=== PATIENT | female | born 1995 | race Caucasian/White ===

== ENCOUNTER 2017-06-05 05:51 | Emergency (ER) | payer MEDICAID ==
[2017-06-05] MEDS ORDERED: METOCLOPRAMIDE 10 MG/2 ML VIAL IVP STA (06:26)
[2017-06-05] MEDS ORDERED: SODIUM CHLORIDE 0.9% 1,000 ML IV ONE (06:26)
--- NOTE | 2017-06-05 06:30 | ED Physician Documentation ---
History of Present Illness - Stated complaint Stated Complaint: VOMITING - Chief complaint Chief Complaint: Abd Pain - Additonal information Additional information: 21-year-old female with history of anxiety presents to the emergency department with vomiting beginning yesterday afternoon. No diarrhea. Patient reports that she is unable to tolerate any p.o. and has since developed a migraine because of this. She has had no fevers and no abdominal pain. Review of Systems Constitutional: denies: Fever Eyes: denies: Loss of vision Nose: denies: Congestion Cardiac: denies: Chest pain / pressure Respiratory: denies: Dyspnea GI: reports: Nausea, Vomiting. denies: Abdominal Pain : denies: Dysuria, Frequency Neurologic: reports: Headache (typical of her migraines) PD PAST MEDICAL HISTORY - Past Medical History Past Medical History: Yes Neuro: Headache/migraine : Incontinence Psych: Anxiety - Past Surgical History Past Surgical History: Yes HEENT: Tonsil/Adenoidectomy - Present Medications Home Medications: Ambulatory Orders Medication Instructions Recorded Confirmed Citalopram [CeleXA] 10 mg PO ONCE 04/17/17 06/05/17 Ondansetron Odt [Zofran] 4 mg TL Q6H PRN #10 tablet 06/05/17 - Allergies Allergies/Adverse Reactions: Allergies Allergy/AdvReac Type Severity Reaction Status Date / Time No Known Drug Allergies Allergy Verified 06/05/17 06:05 - Social History Does the pt smoke?: No Smoking Status: Never smoker Does the pt drink ETOH?: Yes Does the pt have substance abuse?: No - Immunizations Immunizations are current?: Yes - POLST Patient has POLST: No PD ED PE NORMAL - Vitals Vital signs reviewed: Yes - General General: Alert and 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, No acute distress - HEENT HEENT: Other (mildly dry mucus membranes) - Neck Neck: Supple, no meningeal sign - Cardiac Cardiac: RRR, No murmur - Respiratory Respiratory: Clear bilaterally - Abdomen Abdomen: Normal bowel sounds, Soft, Non tender, Non distended - Derm Derm: Warm and dry - Extremities Extremities: No deformity - Neuro 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 and 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, Normal speech - Psych Psych: Other (blunted affect) Results - Vitals Vitals: Vital Signs - 24 hr 06/05/17 06:02 Temperature 37.0 C Heart Rate 102 H Respiratory 18 Rate Blood Pressure 140/82 H O2 Saturation 93 Oxygen O2 Source Room air - Labs Labs: Laboratory Tests 06/05/17 06/05/17 06:15 07:10 Serum HCG, Qual NEGATIVE Ur Specific [place] >=1.030 H Urine HCG, Qual NEGATIVE PD MEDICAL DECISION MAKING - ED course ED course: 21-year-old female presents to the emergency department with vomiting and headache. Vomiting preceded the headache. Benign abdominal exam, well- appearing, mild tachycardia and dry mucous membranes consistent with mild dehydration. I am not concerned for appendicitis, pancreatitis, cholecystitis, biliary colic given her lack of abdominal pain and tenderness.I do not suspect bowel obstruction. I do not suspect new or serious cause of patient's headache given and is typical of her previous migraines. She is afebrile with a supple neck and well- appearing. Patient was treated with IV antiemetics and fluids and felt improved. Departure - Departure Disposition: 01 Home, Self Care Clinical Impression: Vomiting, Headache Condition: Good Instructions: ED Abdominal Pain Unkn Cause, ED Headache Migraine Prescriptions: Ondansetron Odt [Zofran] 4 mg TL Q6H PRN #10 tablet PRN Reason: Nausea / Vomiting Comments: Make an appointment to follow-up with your regular doctor after your visit to the emergency department. Continue to take her usual migraine medications. You were given a prescription for Zofran to help with your vomiting. Return to the emergency department if you develop abdominal pain especially pain in 1 spot. Also return if you are unable to keep down any food or drink.
[2017-06-05] MEDS ORDERED: METOCLOPRAMIDE 10 MG/2 ML VIAL ONE (06:34)
[2017-06-05 07:21] LABS: HCG UR QUAL NEGATIVE
[2017-06-05] MEDS ORDERED: KETOROLAC 30 MG/ML VIAL IVP STA (07:25)
[2017-06-05] MEDS ORDERED: diphenhydrAMINE INJ 50 MG/ML VIAL IVP STA (07:25)
[2017-06-05] MEDS ORDERED: KETOROLAC 30 MG/ML VIAL ONE (08:00)
[2017-06-05] MEDS ORDERED: diphenhydrAMINE INJ 50 MG/ML VIAL ONE (08:00)
[2017-06-05 08:17] VITALS: BP 123/66
== END 2017-06-05 08:14 | disposition home or self-care (01) ==
LOC: ED 05:51
DX: R11.2 Nausea with vomiting, unspecified (principal); R51 Headache
CPT/HCPCS: 81025; 84703; 96361; 96374; 96375; 99283; 99284

== ENCOUNTER 2018-03-20 14:44 | Emergency (ER) | payer MEDICAID ==
[2018-03-20 15:13] LABS: BILIRUBIN,URINE NEGATIVE (NEGATIVE); GLUCOSE, URINE (UA) NEGATIVE (NEGATIVE); KETONES,URINE (UA) NEGATIVE (NEGATIVE); LEUKOCYTE ESTERASE, URINE SMALL (NEGATIVE); NITRITE,URINE POSITIVE (NEGATIVE); OCCULT BLOOD,URINE MODERATE (NEGATIVE); PH,URINE 5.5 PH (5.0-7.5); PROTEIN,URINE 30 mg/dL (NEGATIVE); UROBILINOGEN,URINE 0.2 (NORMAL) E.U./dL (NORMAL)
[2018-03-20 15:18] LABS: CLARITY,URINE HAZY (CLEAR); HCG UR QUAL NEGATIVE
--- NOTE | 2018-03-20 15:27 | ED Physician Documentation ---
PD HPI FEMALE - Stated complaint Stated Complaint: FM - Chief complaint Chief Complaint: UTI - History obtained from History obtained from: Patient - History of Present Illness Timing - onset: How many days ago (3) Timing - duration: Days (3) Timing - details: Gradual onset, Still present Associated symptoms: Vaginal discharge, Dysuria, Urinary frequency, Other (itching) Similar symptoms before: Diagnosis (UTI) Recently seen: Not recently seen - Additional information Additional information: 22 y/o female with a 3 day history of urinary symptoms also has a white discharge and vaginal itching. Review of Systems Constitutional: denies: Fever Nose: denies: Congestion Respiratory: denies: Cough GI: denies: Abdominal Pain, Nausea, Vomiting, Constipation, Diarrhea : reports: Dysuria, Frequency Skin: denies: Rash Musculoskeletal: denies: Neck pain, Back pain, Extremity pain PD PAST MEDICAL HISTORY - Past Medical History Past Medical History: Yes : Incontinence Psych: Anxiety - Past Surgical History Past Surgical History: Yes HEENT: Tonsil/Adenoidectomy - Present Medications Home Medications: Ambulatory Orders Medication Instructions Recorded Confirmed Ciprofloxacin HCl [Cipro] 500 mg PO BID #10 tablet 03/20/18 - Allergies Allergies/Adverse Reactions: Allergies Allergy/AdvReac Type Severity Reaction Status Date / Time No Known Drug Allergies Allergy Verified 03/20/18 14:55 - Social History Does the pt smoke?: No Smoking Status: Never smoker Does the pt drink ETOH?: Yes Does the pt have substance abuse?: No - Immunizations Immunizations are current?: Yes - POLST Patient has POLST: No PD ED PE NORMAL - Vitals Vital signs reviewed: Yes (hypertensive) - General General: Alert and 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, No acute distress, Well developed/nourished - HEENT HEENT: Atraumatic, PERRL - Respiratory Respiratory: No respiratory distress - Back Back: No CVA TTP, No spinal TTP - Derm Derm: Normal color, Warm and dry, No rash - Extremities Extremities: No deformity, No edema - Neuro 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 and 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, 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, No motor deficit, No sensory deficit, Normal speech Eye Opening: Spontaneous Motor: Obeys Commands Verbal: Oriented GCS Score: 15 - Psych Psych: Normal mood, Normal affect Results - Vitals Vitals: Vital Signs - 24 hr 03/20/18 14:52 Temperature 36.8 C Heart Rate 93 Respiratory 18 Rate Blood Pressure 136/92 H O2 Saturation 97 Oxygen O2 Source Room air - Labs Labs: Laboratory Tests 03/20/18 15:03 Urine Color YELLOW Urine Clarity HAZY Urine pH 5.5 Ur Specific [place] >=1.030 H Urine Protein 30 H Urine Glucose (UA) NEGATIVE Urine Ketones NEGATIVE Urine Occult Blood MODERATE H Urine Nitrite POSITIVE H Urine Bilirubin NEGATIVE Urine Urobilinogen 0.2 (NORMAL) Ur Leukocyte Esterase SMALL H Urine RBC 11-25 H Urine WBC 11-25 H Ur Squamous Epith Cells FEW Squamous Urine Bacteria Moderate H Ur Microscopic Review INDICATED Urine Culture Comments INDICATED Urine HCG, Qual NEGATIVE PD MEDICAL DECISION MAKING - ED course Complexity details: reviewed results, re-evaluated patient, considered differential, d/w patient ED course: 22 y/o female with a UTI and yeast vaginitis knows that septra does not usually work and she has had both cipro and macrobid previously. - Sepsis Event Vital Signs: Vital Signs - 24 hr 03/20/18 14:52 Temperature 36.8 C Heart Rate 93 Respiratory 18 Rate Blood Pressure 136/92 H O2 Saturation 97 Oxygen O2 Source Room air Departure - Departure Disposition: 01 Home, Self Care Clinical Impression: UTI (urinary tract infection) Qualifiers: Urinary tract infection type: acute cystitis Hematuria presence: without hematuria Qualified Code(s): N30.00 - Acute cystitis without hematuria Condition: Stable Instructions: ED UTI Cystitis Female Follow-Up: Your, doctor [Other] Prescriptions: Ciprofloxacin HCl [Cipro] 500 mg PO BID #10 tablet
[2018-03-20 15:34] LABS: BACTERIA,URINE Moderate /HPF (None Seen); SQUAMOUS EPITHELIAL CELL,UR FEW Squamous (<= Few)
[2018-03-20] MEDS ORDERED: FLUCONAZOLE 100 MG TABLET PO STA (15:49)
[2018-03-20] MEDS ORDERED: CIPROFLOXACIN 250 MG TABLET PO STA (15:51)
[2018-03-20 15:57] VITALS: BP 130/76
== END 2018-03-20 16:00 | disposition home or self-care (01) ==
LOC: ED 14:44
DX: N30.00 Acute cystitis without hematuria (principal); N76.0 Acute vaginitis
CPT/HCPCS: 81001; 81025; 87086; 87181; 99283; A9270; 81003

== ENCOUNTER 2018-04-10 19:24 | Emergency (ER) | payer MEDICAID ==
--- NOTE | 2018-04-10 19:47 | ED Physician Documentation ---
PD HPI FEMALE - Stated complaint Stated Complaint: FEM - Chief complaint Chief Complaint: UTI - History obtained from History obtained from: Patient - History of Present Illness Timing - onset: Yesterday (Urinary frequency and dysuria which was slight yesterday now much worse today without flank pain, fevers, or nausea. She was seen yesterday for routine woman exam without a pelvic and she said she had a urinalysis done that was negative.) Review of Systems Constitutional: denies: Fever, Chills Respiratory: denies: Dyspnea, Cough GI: denies: Abdominal Pain, Nausea, Vomiting, Diarrhea PD PAST MEDICAL HISTORY - Past Medical History : Incontinence Psych: Anxiety - Past Surgical History Past Surgical History: Yes HEENT: Tonsil/Adenoidectomy - Present Medications Home Medications: Ambulatory Orders Medication Instructions Recorded Confirmed Nitrofurantoin Monohyd/M-Cryst 100 mg PO BID #10 capsule 04/10/18 [Macrobid 100 mg Capsule] Phenazopyridine HCl [Pyridium] 200 mg PO TID PRN #6 tablet 04/10/18 - Allergies Allergies/Adverse Reactions: Allergies Allergy/AdvReac Type Severity Reaction Status Date / Time No Known Drug Allergies Allergy Verified 04/10/18 19:31 - Social History Does the pt smoke?: No Smoking Status: Never smoker Does the pt drink ETOH?: Yes Does the pt have substance abuse?: No - Immunizations Immunizations are current?: Yes - POLST Patient has POLST: No PD ED PE NORMAL - Vitals Vital signs reviewed: Yes - General General: Alert and 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, No acute distress - Abdomen Abdomen: Soft, Non tender - Back Back: No CVA TTP, No spinal TTP - Neuro 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 and 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, Normal speech Results - Vitals Vitals: Vital Signs - 24 hr 04/10/18 19:26 Temperature 36.4 C L Heart Rate 85 Respiratory 17 Rate Blood Pressure 119/81 H O2 Saturation 100 Oxygen O2 Source Room air - Labs Labs: Laboratory Tests 04/10/18 19:36 Urine Color YELLOW Urine Clarity HAZY Urine pH 6.0 Ur Specific [place] >=1.030 H Urine Protein NEGATIVE Urine Glucose (UA) NEGATIVE Urine Ketones TRACE Urine Occult Blood SMALL H Urine Nitrite NEGATIVE Urine Bilirubin NEGATIVE Urine Urobilinogen 0.2 (NORMAL) Ur Leukocyte Esterase SMALL H Urine RBC TNTC H Urine WBC >25 H Ur Squamous Epith Cells FEW Squamous Urine Bacteria Moderate H Urine Culture Comments INDICATED Urine HCG, Qual NEGATIVE Departure - Departure Disposition: 01 Home, Self Care Clinical Impression: Cystitis Condition: Good Record reviewed to determine appropriate education?: Yes Instructions: ED UTI Cystitis Female Prescriptions: Nitrofurantoin Monohyd/M-Cryst [Macrobid 100 mg Capsule] 100 mg PO BID #10 capsule Phenazopyridine HCl [Pyridium] 200 mg PO TID PRN #6 tablet PRN Reason: dysuria Comments: We will culture your urine, the results should be done in 48-72 hours. If an antibiotic change is necessary we will call you. Return if worse in the meantime, especially if you develop increasing flank pain, fevers, or cannot keep down the medication.
[2018-04-10 19:55] LABS: BILIRUBIN,URINE NEGATIVE (NEGATIVE); GLUCOSE, URINE (UA) NEGATIVE (NEGATIVE); KETONES,URINE (UA) TRACE mg/dL (NEGATIVE); LEUKOCYTE ESTERASE, URINE SMALL (NEGATIVE); NITRITE,URINE NEGATIVE (NEGATIVE); OCCULT BLOOD,URINE SMALL (NEGATIVE); PROTEIN,URINE NEGATIVE (NEGATIVE); UROBILINOGEN,URINE 0.2 (NORMAL) E.U./dL (NORMAL)
[2018-04-10 19:58] LABS: CLARITY,URINE HAZY (CLEAR); HCG UR QUAL NEGATIVE
[2018-04-10 20:02] LABS: BACTERIA,URINE Moderate /HPF (None Seen); RBC,URINE TNTC /HPF (0-5); SQUAMOUS EPITHELIAL CELL,UR FEW Squamous (<= Few)
[2018-04-10] MEDS ORDERED: SULFAMETH/TRIMETH DS 800/160 MG TABLET PO STA (20:08)
[2018-04-10] MEDS ORDERED: PHENAZOPYRIDINE 100 MG TABLET PO STA (20:08)
[2018-04-10] MEDS ORDERED: NITROFURANTOIN MACRO 100 MG CAPSULE PO STA (20:15)
[2018-04-10 20:30] VITALS: BP 122/58
== END 2018-04-10 20:29 | disposition home or self-care (01) ==
LOC: ED 19:24
DX: N30.90 Cystitis, unspecified without hematuria (principal)
CPT/HCPCS: 81001; 81025; 87086; 99283; A9270

== ENCOUNTER 2018-12-16 15:26 | Outpatient (CLI) | payer MEDICAID ==
[2018-12-16 16:10] LABS: ALBUMIN 4.4 g/dL (3.2-5.5); ALBUMIN/GLOBULIN RATIO 1.3 (1.0-2.2); ALKALINE PHOSPHATASE 57 IU/L (42-121); ALT ALANINE AMINOTRANSFERASE 36 IU/L (10-60); AST ASPARTATE AMINOTRANSFERASE 24 IU/L (10-42); BILIRUBIN,TOTAL 0.6 mg/dL (0.2-1.0); BUN - BLOOD UREA NITROGEN 17 mg/dL (6-20); CALCIUM 9.4 mg/dL (8.5-10.3); CARBON DIOXIDE - CO2 20 mmol/L (21-32); CHLORIDE 107 mmol/L (101-111); CHOL/HDL RATIO 4.3 (<4.4); CHOLESTEROL 186 mg/dL; CREATININE 0.9 mg/dL (0.4-1.0); GFR - MDRD 76 (>89); GLUCOSE 97 mg/dL (70-100); HDL CHOLESTEROL 43 mg/dL; LDL CHOLESTEROL,CALCULATED 116 mg/dL; LDL/HDL RATIO 2.7 (<4.4); SODIUM 137 mmol/L (135-145); TOTAL PROTEIN 7.9 g/dL (6.7-8.2); VLDL CHOLESTEROL 27 mg/dL
[2018-12-16 16:58] LABS: HB2 TOTAL 14.5 g/dL; HEMOGLOBIN A1C 0.53 g/dL; HEMOGLOBIN A1C % 5.5 % (4.6-6.2)
[2018-12-16 17:11] LABS: THYROID STIMULATING HORMONE 2.65 uIU/mL (0.34-5.60)
[2018-12-16 17:13] LABS: FREE T4 (FREE THYROXINE) 0.78 ng/dL (0.58-1.64)
[2018-12-16 17:16] LABS: PROLACTIN 10.75 ng/mL
[2018-12-16 17:38] LABS: FOLLICLE STIMULATING HORMONE 6.4 mIU/mL
[2018-12-17 07:05] LABS: ESTRADIOL 103 pg/mL
== END 2018-12-16 16:00 | disposition home or self-care (01) ==
LOC: LAB 15:26
PROVIDERS: ATTEND Obstetrics & Gynecology
DX: E28.2 Polycystic ovarian syndrome (principal); R10.2 Pelvic and perineal pain; N39.45 Continuous leakage
CPT/HCPCS: 80053; 80061; 81599; 82626; 82670; 83001; 83036; 83721; 84146; 84439; 84443

== ENCOUNTER 2018-12-16 17:45 | Outpatient (CLI) | payer MEDICAID ==
[2018-12-16 21:36] LABS: CANDIDA GROUP DNA POSITIVE (NEGATIVE); CANDIDA KRUSEI DNA NEGATIVE (NEGATIVE); TRICHOMONAS VAGINALIS DNA NEGATIVE (NEGATIVE)
== END 2018-12-16 18:15 | disposition home or self-care (01) ==
LOC: LAB.R 17:45
PROVIDERS: ATTEND Obstetrics & Gynecology
DX: E28.2 Polycystic ovarian syndrome (principal); R10.2 Pelvic and perineal pain; N39.45 Continuous leakage
CPT/HCPCS: 87086; 87661; 87801

== ENCOUNTER 2018-12-30 08:57 | Outpatient (CLI) | payer MEDICAID ==
--- NOTE | 2018-12-30 16:17 | Ultrasound Report ---
Reason: PELVIC PAIN, AMENORRHEA, URINARY INCONTINENCE LEAK Procedure Date: 12/30/2018 Accession Number: [id number] / [id number] Procedure: US - Pelvic w/Transvaginal CPT Code: FULL RESULT: EXAM: PELVIC ULTRASOUND EXAM DATE: 12/30/2018 09:59 AM. CLINICAL HISTORY: PELVIC PAIN, AMENORRHEA, URINARY INCONTINENCE LEAK. COMPARISON: None. TECHNIQUE: Realtime transabdominal pelvic scan performed to identify the uterus and adnexa and as an overview of other pelvic structures, followed by transvaginal scan to provide greater detail of the uterus and adnexa, with static image documentation. FINDINGS: Uterus: 8.8 x 3.2 x 4.2 cm, volume 64 cc. Anteverted position. Normal overall size and echotexture. Masses: None. Endometrium: 7 mm. Normal. Cervix: Unremarkable. Right Ovary: 4.1 x 2.6 x 3.1 cm, volume 18 cc. Normal blood flow. Numerous small peripheral follicles are present with ovarian enlargement. Left Ovary: 3.6 x 2.5 x 3.2 cm, volume 16 cc. Normal blood flow. Numerous small peripheral follicles are present with ovarian enlargement. Free Fluid: None. Other: None. IMPRESSION: 1. Enlarged ovaries containing numerous small peripheral follicles in a pattern consistent with polycystic ovarian syndrome in the correct clinical setting. 2. No mass lesions or free fluid. RADIA
== END 2018-12-30 08:58 | disposition home or self-care (01) ==
LOC: DI 08:57
PROVIDERS: ATTEND Obstetrics & Gynecology
DX: N83.8 Other noninflammatory disorders of ovary, fallopian tube and broad ligament (principal); R10.2 Pelvic and perineal pain; N91.1 Secondary amenorrhea; N39.45 Continuous leakage
CPT/HCPCS: 76830; 76856

== ENCOUNTER 2019-02-26 21:48 | Emergency (ER) | payer MEDICAID ==
--- NOTE | 2019-02-26 21:59 | ED Physician Documentation ---
PD HPI FEMALE - Stated complaint Stated Complaint: POSS UTI/ABD PX - Chief complaint Chief Complaint: Abd Pain - History obtained from History obtained from: Patient - History of Present Illness Timing - onset: Enter time (10:00), Today Timing - details: Gradual onset, Waxing and waning Associated symptoms: Pelvic pain (left pelvis), Dysuria, Urinary frequency. No: Fever Contributing factors: IUD. No: Recently seen: Not recently seen Review of Systems Constitutional: denies: Fever, Chills, Sweats GI: reports: Other (suprapubic and left pelvic discomfort). denies: Abdominal Pain, Nausea, Vomiting : reports: Dysuria, Frequency PD PAST MEDICAL HISTORY - Past Medical History Past Medical History: Yes : Incontinence Psych: Anxiety - Past Surgical History Past Surgical History: Yes HEENT: Tonsil/Adenoidectomy - Present Medications Home Medications: Ambulatory Orders Medication Instructions Recorded Confirmed Fluticasone [Flonase] 1 sprays JOSE E DAILY 02/26/19 02/26/19 Levonorgestrel 20 Mcg/24H [Mirena] 1 each IY 02/26/19 Nitrofurantoin Monohyd/M-Cryst 100 mg PO BID #10 capsule 02/26/19 [Macrobid 100 mg Capsule] Spironolactone 50 mg PO 02/26/19 - Allergies Allergies/Adverse Reactions: Allergies Allergy/AdvReac Type Severity Reaction Status Date / Time No Known Drug Allergies Allergy Verified 02/26/19 21:54 - Social History Does the pt smoke?: No Smoking Status: Never smoker Does the pt drink ETOH?: Yes Does the pt have substance abuse?: No - Immunizations Immunizations are current?: Yes - POLST Patient has POLST: No PD ED PE NORMAL - Vitals Vital signs reviewed: Yes - General General: Alert and 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, No acute distress, Well developed/nourished - Abdomen Abdomen: Soft, Non tender - Back Back: No CVA TTP - Derm Derm: Normal color, Warm and dry, No rash Results - Vitals Vitals: Vital Signs - 24 hr 02/26/19 02/26/19 21:50 23:53 Temperature 36.4 C L 36.5 C Heart Rate 81 74 Respiratory 16 18 Rate Blood Pressure 152/108 H 140/80 H O2 Saturation 99 98 Oxygen O2 Source Room air - Labs Labs: Laboratory Tests 02/26/19 22:03 Urine Color ORANGE Urine Clarity HAZY Urine pH 6.0 Ur Specific [place] 1.025 Urine Protein Urine Glucose (UA) NEGATIVE Urine Ketones NEGATIVE Urine Occult Blood Urine Nitrite Urine Bilirubin NEGATIVE Urine Urobilinogen Ur Leukocyte Esterase Urine RBC 6-10 H Urine WBC 6-10 H Ur Squamous Epith Cells RARE Squamous Urine Bacteria Few Ur Microscopic Review INDICATED Urine Culture Comments INDICATED Urine HCG, Qual NEGATIVE PD MEDICAL DECISION MAKING - ED course Complexity details: reviewed results, re-evaluated patient, considered differential, d/w patient Departure - Departure Disposition: Home, Self Care Clinical Impression: UTI (urinary tract infection) Qualifiers: Urinary tract infection type: acute cystitis Hematuria presence: with hematuria Qualified Code(s): N30.01 - Acute cystitis with hematuria Condition: Good Instructions: ED UTI Cystitis Female Prescriptions: Nitrofurantoin Monohyd/M-Cryst [Macrobid 100 mg Capsule] 100 mg PO BID #10 capsule Discharge Date/Time: 02/27/19 00:00
[2019-02-26 22:14] LABS: BILIRUBIN,URINE NEGATIVE (NEGATIVE); GLUCOSE, URINE (UA) NEGATIVE (NEGATIVE); KETONES,URINE (UA) NEGATIVE (NEGATIVE)
[2019-02-26 22:22] LABS: CLARITY,URINE HAZY (CLEAR); HCG UR QUAL NEGATIVE
[2019-02-26 22:23] LABS: BACTERIA,URINE Few /HPF (None Seen); SQUAMOUS EPITHELIAL CELL,UR RARE Squamous (<= Few)
[2019-02-26] MEDS ORDERED: HYDROcod/ACET 5/325 Prepack 4 PO STA (23:49)
[2019-02-26] MEDS ORDERED: NITROFURANTOIN MACRO 100 MG CAPSULE PO STA (23:49)
[2019-02-27] VITALS: BP 140/80
== END 2019-02-27 | disposition home or self-care (01) ==
LOC: ED 21:48
DX: N30.01 Acute cystitis with hematuria (principal)
CPT/HCPCS: 81001; 81025; 87086; 87181; 99283; A9270; 81003

== ENCOUNTER 2019-03-08 14:02 | Outpatient (CLI) | payer MEDICAID ==
[2019-03-08 14:23] LABS: CALCIUM 9.8 mg/dL (8.5-10.3)
== END 2019-03-08 14:03 | disposition home or self-care (01) ==
LOC: LAB 14:02
PROVIDERS: ATTEND Obstetrics & Gynecology
DX: E28.2 Polycystic ovarian syndrome (principal)
CPT/HCPCS: 36415; 80048

== ENCOUNTER 2019-04-20 08:46 | Emergency (ER) | payer MEDICAID ==
[2019-04-20 09:07] LABS: BILIRUBIN,URINE NEGATIVE (NEGATIVE); GLUCOSE, URINE (UA) NEGATIVE (NEGATIVE); KETONES,URINE (UA) NEGATIVE (NEGATIVE); LEUKOCYTE ESTERASE, URINE SMALL (NEGATIVE); NITRITE,URINE NEGATIVE (NEGATIVE); OCCULT BLOOD,URINE SMALL (NEGATIVE); PH,URINE 5.5 PH (5.0-7.5); PROTEIN,URINE NEGATIVE (NEGATIVE); UROBILINOGEN,URINE 0.2 (NORMAL) E.U./dL (NORMAL)
[2019-04-20 09:08] LABS: CLARITY,URINE SL. CLOUDY (CLEAR)
[2019-04-20 09:09] LABS: HCG UR QUAL NEGATIVE
[2019-04-20 09:11] LABS: BACTERIA,URINE Few /HPF (None Seen); SQUAMOUS EPITHELIAL CELL,UR FEW Squamous (<= Few)
--- NOTE | 2019-04-20 11:26 | ED Physician Documentation ---
PD HPI FEMALE - Stated complaint Stated Complaint: FEMALE - Chief complaint Chief Complaint: UTI - History obtained from History obtained from: Patient - History of Present Illness Timing - onset: Today Timing - duration: Hours Timing - details: Abrupt onset, Still present Associated symptoms: Dysuria, Urinary frequency Similar symptoms before: Diagnosis (UTI) Recently seen: Not recently seen - Additional information Additional information: Previously well 23-year-old female has developed urinary urgency frequency and dysuria similar to what she is had previously when she had urinary tract infection she denies any fever or vomiting denies any flank pain. Review of Systems Constitutional: reports: Fatigue. denies: Fever Respiratory: denies: Cough GI: denies: Abdominal Pain, Nausea, Vomiting : reports: Dysuria, Frequency Musculoskeletal: denies: Neck pain, Back pain PD PAST MEDICAL HISTORY - Past Medical History : Incontinence Psych: Anxiety - Past Surgical History Past Surgical History: Yes HEENT: Tonsil/Adenoidectomy - Present Medications Home Medications: Ambulatory Orders Medication Instructions Recorded Confirmed Fluticasone [Flonase] 1 sprays JOSE E DAILY 02/26/19 02/26/19 Levonorgestrel 20 Mcg/24H [Mirena] 1 each IY 02/26/19 Spironolactone 50 mg PO 02/26/19 Sulfamethox/Trimeth 800/160 1 each PO BID #10 tablet 04/20/19 [Bactrim Ds] - Allergies Allergies/Adverse Reactions: Allergies Allergy/AdvReac Type Severity Reaction Status Date / Time No Known Drug Allergies Allergy Verified 04/20/19 08:52 - Social History Does the pt smoke?: No Smoking Status: Never smoker Does the pt drink ETOH?: Yes Does the pt have substance abuse?: No - Immunizations Immunizations are current?: Yes - POLST Patient has POLST: No PD ED PE NORMAL - Vitals Vital signs reviewed: Yes (hypertensive ) - General General: Alert and 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, No acute distress, Well developed/nourished - HEENT HEENT: Atraumatic, PERRL, EOMI - Respiratory Respiratory: No respiratory distress - Back Back: No CVA TTP, No spinal TTP - Derm Derm: Normal color, Warm and dry, No rash - Extremities Extremities: No deformity, No edema - 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 Urine pH 5.5 Ur Specific [place] >=1.030 H >=1.030 H Urine Protein NEGATIVE Urine Glucose (UA) NEGATIVE Urine Ketones NEGATIVE Urine Occult Blood SMALL H Urine Nitrite NEGATIVE Urine Bilirubin NEGATIVE Urine Urobilinogen 0.2 (NORMAL) Ur Leukocyte Esterase SMALL H Urine RBC 11-25 H Urine WBC 11-25 H Ur Squamous Epith Cells FEW Squamous Urine Bacteria Few Ur Microscopic Review INDICATED Urine Culture Comments INDICATED Urine HCG, Qual NEGATIVE PD MEDICAL DECISION MAKING - ED course Complexity details: considered differential, d/w patient ED course: 23-year-old female with urinary tract infection is otherwise healthy and no evidence of Pyelo. Departure - Departure Disposition: 01 Home, Self Care Clinical Impression: UTI (urinary tract infection) Qualifiers: Urinary tract infection type: acute cystitis Hematuria presence: with hematuria Qualified Code(s): N30.01 - Acute cystitis with hematuria Condition: Stable Instructions: ED UTI Cystitis Female Follow-Up: Your, doctor [Other] Prescriptions: Sulfamethox/Trimeth 800/160 [Bactrim Ds] 1 each PO BID #10 tablet
[2019-04-20 11:32] VITALS: BP 138/87
== END 2019-04-20 11:32 | disposition home or self-care (01) ==
LOC: ED 08:46
DX: N30.01 Acute cystitis with hematuria (principal)
CPT/HCPCS: 81001; 81003; 81025; 87086; 87181; 99283

== ENCOUNTER 2019-05-18 07:41 | Day surgery (SDC) | payer MEDICAID ==
[2019-05-18] MEDS ORDERED: MIDAZOLAM 2 MG/2 ML VIAL IVP ONE (07:42)
[2019-05-18] MEDS ORDERED: PROPOFOL 200 MG/20 ML VIAL IVP ONE (07:42)
[2019-05-18] MEDS ORDERED: DEXAMETHASONE 4 MG/ML VIAL IVP ONE (07:42)
[2019-05-18] MEDS ORDERED: KETOROLAC 30 MG/ML VIAL IVP ONE (07:42)
[2019-05-18] MEDS ORDERED: LACTATED RINGERS 1,000 ML IV ONE (07:46)
[2019-05-18 08:04] LABS: HCG UR QUAL NEGATIVE
--- NOTE | 2019-05-18 08:11 | ANESTHESIA ---
Pre-Anesthesia VS, & Labs - Diagnosis labial hypertrophy - Procedure labioplasty Vital Signs: Temp Pulse Resp BP Pulse Ox 36.4 C L 85 12 149/99 H 98 05/18/19 07:49 05/18/19 07:49 05/18/19 07:49 05/18/19 07:49 05/18/19 07:49 Height 5 ft 7 in Weight (kg) 124.5 kg Body Mass Index 31.4 - Is Patient ?: No Home Medications and Allergies Fluticasone [Flonase] 1 sprays JOSE E DAILY 02/26/19 Spironolactone 50 mg PO DAILY 02/26/19 Allergies/Adverse Reactions: Allergies Allergy/AdvReac Type Severity Reaction Status Date / Time No Known Drug Allergies Allergy Verified 04/20/19 08:52 Anes History & Medical History - Anesthetic History Anesthesia Complications: reports: No previous complications Family history of Anesthesia Complications: Denies Family history of Malignant Hyperthermia: Denies - Medical History Cardiovascular: reports: None Pulmonary: reports: None Gastrointestinal: reports: None Urinary: reports: Chronic bladder infection Musculoskeletal: reports: None Endocrine/Autoimmune: reports: None Skin: reports: None Smoking Status: Current some day smoker (smokes marijuana " couple days a week") Psychosocial: reports: Depression, Anxiety - Surgical History Eyes Ears Nose Throat (EENT): Tonsil/Adenoidectomy Exam General: Alert, Oriented x3, Cooperative, No acute distress Dental: WNL Mouth Openin Fingerbreadth Neck Mobility: Normal Mallampati classification: II Thyromental Distance: 4-6 cm Respiratory: Lungs clear, Normal breath sounds, No respiratory distress, No accessory muscle use Cardiovascular: Regular rate, Normal S1, Normal S2, No murmurs Abdomen: Normal bowel sounds, Soft, No tenderness, No hepatospenomegaly, No masses Extremities: No clubbing, No cyanosis, No edema, Normal pulses, No tenderness/swelling Neurological: Normal gait, Normal speech, Strength at 5/5 X4 ext, Normal tone, Sensation intact, Cranial nerves 3-12 NL, Reflexes 2+ Mental/Cognitive Status: Alert/Oriented X3, Normal for patient Cognitive Status: Within normal limits Plan Anesthesia Type: General Consent for Procedure(s) Verified and Reviewed: Yes Code Status: Attempt Resuscitation ASA classification: 2-Mild systemic disease Is this case an emergency?: No
[2019-05-18] MEDS ORDERED: LIDOCAINE-MPF 1% 30 ML VIAL ONE (08:28)
[2019-05-18] MEDS ORDERED: BUPIVACAINE 0.25% PF 30 ML VIAL ONE (09:00)
[2019-05-18] MEDS ORDERED: LIDOCAINE 1%-EPI 1:100000 20 ML MDV ONE (09:00)
[2019-05-18] MEDS ORDERED: LIDOCAINE MPF 2%-EPI 1:200000 20 ML VIAL ONE (09:01)
[2019-05-18] MEDS ORDERED: LIDOCAINE 1%-EPI 1:100000 20 ML MDV SUBQ ONE ×2 (09:32)
[2019-05-18] MEDS ORDERED: BUPIVACAINE 0.25% PF 30 ML VIAL SUBQ ONE ×2 (09:33)
[2019-05-18] MEDS ORDERED: oxyCODONE 5 MG TABLET PO PRN (10:19)
[2019-05-18] MEDS ORDERED: ONDANSETRON 4 MG/2 ML VIAL IVP PRN (10:19)
[2019-05-18] MEDS ORDERED: HYDROmorphone 0.5 MG/0.5 ML SYRINGE IVP PRN (10:19)
--- NOTE | 2019-05-18 10:22 | OPERATIVE REPORT ---
Operative Report - General Procedure Date: 05/18/19 Planned Procedure: Labioplasty Pre-Op Diagnosis: Bilateral hypertrophy of labia minora Procedure Performed: Labioplasty of bilateral labia minora Post Op Diagnosis: labial hypertrophy - Procedure Note Primary Surgeon: Dilcia Anesthesia Technique: General LMA Pathology: none IV Fluids (mL): 500 Estimated Blood Loss (mL): 50 Urine Output (mL): 100 Findings: Bilateral labial hypertrophy with length of labia minora 7cm. Complications: None - Other Other Information/Narrative: Patient was brought to the OR and SCDs were placed. Induced with general anesthesia. Placed in low lithotomy in yellow fin stirrups. Prepped in the usual sterile fashion. In-and-out catheterized. Area of hypertrophy marked for excision with an ending length of 1cm. Numbed with combination lidocaine and marcaine with epi. The excess labia minora was excised with a bovie. Incision closed with a running layer of 4-0 vicryl. One spot on the right side was oversewn with an interrupted suture due to oozing. Good hemostasis by the end of the incision. Local again used along the incisions. Awakened and transfer red to PACU. Pt required a jaw thrust when sleepy in order to oxygenate. Will get a sleep study.
[2019-05-18] MEDS: fentaNYL 100 MCG/2 ML VIAL ONE ×2 (10:30→10:35)
[2019-05-18] MEDS ORDERED: HYDROmorphone 0.5 MG/0.5 ML SYRINGE ONE (10:46)
[2019-05-18 11:23] VITALS: BP 134/93
[2019-05-18] MEDS ORDERED: oxyCODONE 5 MG TABLET ONE (11:42)
[2019-05-18] MEDS ORDERED: LIDOCAINE-MPF 2% 5 ML VIAL ONE (11:43)
[2019-05-18] MEDS ORDERED: LIDOCAINE/PRILOCAINE 2.5% CREAM 5 GM TUBE TOP ONE (11:45)
[2019-05-18] MEDS ORDERED: LIDOCAINE TOPICAL 4% 50 ML BOTTLE ONE (11:58)
== END 2019-05-18 07:42 | disposition home or self-care (01) ==
LOC: SDS 07:41
PROVIDERS: ATTEND Obstetrics & Gynecology
PROC: 0UBMXZZ Excision of Vulva, External Approach (ICD-10-PCS; principal; 2019-05-18 08:45)
DX: N90.60 Unspecified hypertrophy of vulva (principal); E66.9 Obesity, unspecified; Z68.31 Body mass index [BMI] 31.0-31.9, adult
CPT/HCPCS: 56620; 81025; A9270; J1170; J7120

== ENCOUNTER 2019-05-18 17:31 | Outpatient (CLI) | payer MEDICAID | END 2019-05-18 17:32 | disposition critical access hospital (66) | LOC: EMS 17:31 | PROVIDERS: ATTEND Surgery | DX: R42 Dizziness and giddiness (principal); R51 Headache; R58 Hemorrhage, not elsewhere classified | CPT/HCPCS: A0425; A0427 ==

== ENCOUNTER 2019-05-18 17:49 | Emergency (ER) | payer MEDICAID ==
[2019-05-18] MEDS ORDERED: SODIUM CHLORIDE 0.9% 1,000 ML IV ONE (17:58)
[2019-05-18] MEDS ORDERED: TRANEXAMIC ACID 1,000 MG in SODIUM CHLORIDE 0.9% 100ML 100 ML IV STA (18:00)
[2019-05-18 18:18] LABS: BASOPHILS % (AUTO) 0.2 %; HGB - HEMOGLOBIN 13.1 g/dL (12.0-16.0); LYMPHOCYTES % (AUTO) 9.8 %; MEAN CORPUSCULAR HGB CONC 33.1 g/dL (32.0-36.0); MEAN CORPUSCULAR VOLUME 87.6 fL (81.0-99.0); MEAN PLATELET VOLUME 9.2 fL (7.9-10.8); MONOCYTES # (AUTO) 0.2 10^3/uL (0.0-1.0); MONOCYTES % (AUTO) 2.4 %; NEUTROPHILS # (AUTO) 8.6 10^3/uL (1.5-6.6); NEUTROPHILS % (AUTO) 87.1 %; PLT - PLATELET COUNT 313 10^3/uL (130-450); RED BLOOD COUNT 4.52 10^6/uL (4.20-5.40); RED CELL DISTRIBUTION WIDTH 12.8 % (12.0-15.0); WHITE BLOOD COUNT 9.9 x10^3/uL (4.8-10.8)
--- NOTE | 2019-05-18 18:18 | ED Physician Documentation ---
History of Present Illness - Stated complaint Stated Complaint: POST OP BLEEDING - Chief complaint Chief Complaint: General - History obtained from History obtained from: Patient - History of Present Illness Timing: Today Pain level max: 5 Pain level now: 4 - Additonal information Additional information: Patient is status post labioplasty this morning. There is a oozing to the right labia during surgery. She states continued bleeding tonight. She felt lightheaded and dizzy today as well. Nothing seems to make this better or worse. Review of Systems Ten Systems: 10 systems reviewed and negative Constitutional: denies: Fever, Chills Cardiac: denies: Chest pain / pressure Respiratory: denies: Cough Skin: denies: Rash Musculoskeletal: denies: Neck pain, Back pain Neurologic: denies: Headache PD PAST MEDICAL HISTORY - Past Medical History Cardiovascular: None Respiratory: None Endocrine/Autoimmune: None GI: None : Chronic bladder infection HEENT: None Psych: Anxiety, Post traumatic stress disorder Musculoskeletal: None Derm: None - Past Surgical History Past Surgical History: Yes HEENT: Tonsil/Adenoidectomy - Present Medications Home Medications: Ambulatory Orders Medication Instructions Recorded Confirmed Fluticasone [Flonase] 1 sprays JOSE E DAILY 02/26/19 05/18/19 Spironolactone 50 mg PO DAILY 02/26/19 05/18/19 Lidocaine Ointment 5% [Xylocaine 1 applic TOP QID PRN #1 tube 05/18/19 Ointment 5%] - Allergies Allergies/Adverse Reactions: Allergies Allergy/AdvReac Type Severity Reaction Status Date / Time No Known Drug Allergies Allergy Verified 05/18/19 17:58 - Social History Does the pt smoke?: No Smoking Status: Never smoker Does the pt drink ETOH?: Yes Does the pt have substance abuse?: No - Immunizations Immunizations are current?: Yes - POLST Patient has POLST: No PD ED PE NORMAL - Vitals Vital signs reviewed: Yes - General General: Alert and 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, No acute distress, Well developed/nourished - HEENT HEENT: PERRL, Moist mucous membranes - Neck Neck: Supple, no meningeal sign - Cardiac Cardiac: RRR, Strong equal pulses - Respiratory Respiratory: No respiratory distress, Clear bilaterally - Abdomen Abdomen: Soft, Non tender, Non distended - Female Female : Inspection Manager present (Nita RN), Other (Mild oozing from the labioplasty. No brisk bleeding. Small amount of dark blood in the vaginal opening. No dehiscence. No signs of infection) - Derm Derm: Warm and dry - Neuro 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 and 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 - Psych Psych: Normal mood, Normal affect Results - Vitals Vitals: Oxygen O2 Source Room air - Labs Labs: Laboratory Tests 05/18/19 05/18/19 18:11 18:11 WBC 9.9 RBC 4.52 Hgb 13.1 Hct 39.6 MCV 87.6 MCH 29.0 MCHC 33.1 RDW 12.8 Plt Count 313 MPV 9.2 Neut # (Auto) 8.6 H Lymph # (Auto) 1.0 L [place] # (Auto) 0.2 Eos # (Auto) 0.0 Baso # (Auto) 0.0 Absolute Nucleated RBC 0.00 Nucleated RBC % 0.0 Sodium 137 Potassium 4.1 Chloride 106 Carbon Dioxide 23 Anion Gap 8.0 BUN 19 Creatinine 0.9 Estimated GFR (MDRD) 76 L Glucose 164 H Calcium 8.9 PD MEDICAL DECISION MAKING - ED course Complexity details: reviewed results, re-evaluated patient, considered differential, d/w patient, d/w family, d/w reporting consultant ED course: Patient was slight oozing from the surgical site. No dehiscence. No infection. Discussed the case with Dr. Vallejo, OB on-call who recommends IV TXA and follow- up in the office. No acute laboratory abnormalities. Patient counseled regarding signs and symptoms for which I believe and urgent re-evaluation would be necessary. Patient with good understanding of and agreement to plan and is comfortable going home at this time This document was made in part using voice recognition software. While efforts are made to proofread this document, sound alike and grammatical errors may occur. Departure - Departure Disposition: 01 Home, Self Care Clinical Impression: Postoperative vaginal bleeding Condition: Good Instructions: ED Wound Check Post Op Bleeding Follow-Up: Jacklyn Ha MD [Provider Admit Priv/Credential] - Within 1 week Prescriptions: Lidocaine Ointment 5% [Xylocaine Ointment 5%] 1 applic TOP QID PRN #1 tube PRN Reason: pain Comments: Return if you worsen. The bleeding should improve over the next day. I would recommend using pads at home. The prescription was sent electronically to [facility]. Discharge Date/Time: 05/18/19 20:11
[2019-05-18 18:27] LABS: CALCIUM 8.9 mg/dL (8.5-10.3); CREATININE 0.9 mg/dL (0.4-1.0)
[2019-05-18] MEDS ORDERED: oxyCODONE 5 MG TABLET PO STA (19:22)
[2019-05-18 19:53] VITALS: BP 135/80
== END 2019-05-18 20:11 | disposition home or self-care (01) ==
LOC: EDUNIT# → ED 17:49
DX: N99.820 Postprocedural hemorrhage of a genitourinary system organ or structure following a genitourinary system procedure (principal)
CPT/HCPCS: 36415; 80048; 85025; 96361; 96365; 99284; A9270

== ENCOUNTER 2019-06-06 08:00 | Outpatient (CLI) | payer MEDICAID ==
[2019-06-08 20:35] LABS: CANDIDA GROUP DNA POSITIVE (NEGATIVE); CANDIDA KRUSEI DNA NEGATIVE (NEGATIVE); TRICHOMONAS VAGINALIS DNA NEGATIVE (NEGATIVE)
== END 2019-06-06 23:59 | disposition home or self-care (01) ==
LOC: LAB.R 08:00
PROVIDERS: ATTEND Obstetrics & Gynecology
DX: N89.8 Other specified noninflammatory disorders of vagina (principal)
CPT/HCPCS: 87661; 87801

== ENCOUNTER 2019-07-29 08:00 | Outpatient (CLI) | payer MEDICAID ==
[2019-07-29 20:45] LABS: TRICHOMONAS VAGINALIS DNA NEGATIVE (NEGATIVE)
== END 2019-07-29 23:59 | disposition home or self-care (01) ==
LOC: LAB.R 08:00
PROVIDERS: ATTEND Obstetrics & Gynecology
DX: Z11.3 Encounter for screening for infections with a predominantly sexual mode of transmission (principal)
CPT/HCPCS: 87491; 87591; 87661

== ENCOUNTER 2019-07-29 12:06 | Outpatient (CLI) | payer MEDICAID ==
[2019-07-29 12:38] LABS: BASOPHILS % (AUTO) 0.5 %; EOSINOPHILS # (AUTO) 0.2 10^3/uL (0.0-0.7); EOSINOPHILS % (AUTO) 3.2 %; HGB - HEMOGLOBIN 13.8 g/dL (12.0-16.0); LYMPHOCYTES # (AUTO) 2.2 10^3/uL (1.5-3.5); LYMPHOCYTES % (AUTO) 29.8 %; MEAN CORPUSCULAR HEMOGLOBIN 29.3 pg (27.0-31.0); MEAN CORPUSCULAR HGB CONC 33.3 g/dL (32.0-36.0); MEAN CORPUSCULAR VOLUME 87.9 fL (81.0-99.0); MEAN PLATELET VOLUME 9.7 fL (7.9-10.8); MONOCYTES # (AUTO) 0.5 10^3/uL (0.0-1.0); MONOCYTES % (AUTO) 6.3 %; NEUTROPHILS # (AUTO) 4.4 10^3/uL (1.5-6.6); NEUTROPHILS % (AUTO) 59.8 %; PLT - PLATELET COUNT 292 10^3/uL (130-450); RED BLOOD COUNT 4.71 10^6/uL (4.20-5.40); RED CELL DISTRIBUTION WIDTH 13.2 % (12.0-15.0); WHITE BLOOD COUNT 7.4 x10^3/uL (4.8-10.8)
[2019-07-29 13:01] LABS: ALBUMIN 4.2 g/dL (3.2-5.5); ALBUMIN/GLOBULIN RATIO 1.3 (1.0-2.2); ALKALINE PHOSPHATASE 57 IU/L (42-121); ALT ALANINE AMINOTRANSFERASE 39 IU/L (10-60); AST ASPARTATE AMINOTRANSFERASE 24 IU/L (10-42); BILIRUBIN,TOTAL 0.7 mg/dL (0.2-1.0); BUN - BLOOD UREA NITROGEN 19 mg/dL (6-20); CALCIUM 9.3 mg/dL (8.5-10.3); CARBON DIOXIDE - CO2 24 mmol/L (21-32); CHLORIDE 104 mmol/L (101-111); CHOL/HDL RATIO 3.9 (<4.4); CHOLESTEROL 187 mg/dL; CREATININE 0.9 mg/dL (0.4-1.0); GFR - MDRD 76 (>89); GLUCOSE 119 mg/dL (70-100); HDL CHOLESTEROL 48 mg/dL; LDL CHOLESTEROL,CALCULATED 94 mg/dL; SODIUM 138 mmol/L (135-145); TOTAL PROTEIN 7.5 g/dL (6.7-8.2); VLDL CHOLESTEROL 45 mg/dL
[2019-07-29 13:05] LABS: T4 (THYROXINE) 5.5 ug/dL (6.09-12.23)
[2019-07-29 13:07] LABS: HB2 TOTAL 13.4 g/dL; HEMOGLOBIN A1C 0.49 g/dL; HEMOGLOBIN A1C % 5.5 % (4.6-6.2)
[2019-07-29 13:09] LABS: THYROID STIMULATING HORMONE 2.43 uIU/mL (0.34-5.60)
[2019-07-30 12:38] LABS: HIV AG/AB 4TH GEN NON-REACTIVE (NON-REACTIVE)
[2019-07-30 12:54] LABS: HEPATITIS B SURFACE ANTIGEN NON-REACTIVE (NON-REACTIVE); HEPATITIS C ANTIBODY NON-REACTIVE (NON-REACTIVE)
== END 2019-07-29 12:07 | disposition home or self-care (01) ==
LOC: LAB 12:06
PROVIDERS: ATTEND Obstetrics & Gynecology
DX: R53.83 Other fatigue (principal); Z68.44 Body mass index [BMI] 60.0-69.9, adult; Z11.3 Encounter for screening for infections with a predominantly sexual mode of transmission
CPT/HCPCS: 36415; 80053; 80061; 81599; 83036; 83721; 84436; 84443; 84481; 85025; 86592; 86803; 87340; 87389

== ENCOUNTER 2020-01-13 07:00 | Outpatient (CLI) | payer MEDICAID ==
[2020-01-13 20:39] LABS: CANDIDA GROUP DNA POSITIVE (NEGATIVE); CANDIDA KRUSEI DNA NEGATIVE (NEGATIVE); TRICHOMONAS VAGINALIS DNA NEGATIVE (NEGATIVE)
[2020-01-13 22:09] LABS: TRICHOMONAS VAGINALIS DNA NEGATIVE (NEGATIVE)
== END 2020-01-13 07:01 | disposition home or self-care (01) ==
LOC: LAB.R 07:00
PROVIDERS: ATTEND Obstetrics & Gynecology
DX: Z11.3 Encounter for screening for infections with a predominantly sexual mode of transmission (principal); Z72.51 High risk heterosexual behavior; L29.8 Other pruritus; N89.8 Other specified noninflammatory disorders of vagina
CPT/HCPCS: 87491; 87591; 87661; 87801

== ENCOUNTER 2020-01-17 13:14 | Outpatient (CLI) | payer MEDICAID ==
[2020-01-18 11:23] LABS: HEPATITIS B SURFACE ANTIGEN NON-REACTIVE (NON-REACTIVE)
[2020-01-18 15:08] LABS: HIV AG/AB 4TH GEN NON-REACTIVE (NON-REACTIVE)
== END 2020-01-17 13:15 | disposition home or self-care (01) ==
LOC: LAB 13:14
PROVIDERS: ATTEND Obstetrics & Gynecology
DX: Z11.3 Encounter for screening for infections with a predominantly sexual mode of transmission (principal); Z72.51 High risk heterosexual behavior
CPT/HCPCS: 36415; 81599; 86592; 87340; 87389

== ENCOUNTER 2020-02-01 08:00 | Outpatient (CLI) | payer MEDICAID ==
[2020-02-01 20:53] LABS: CANDIDA GROUP DNA NEGATIVE (NEGATIVE); CANDIDA KRUSEI DNA NEGATIVE (NEGATIVE); TRICHOMONAS VAGINALIS DNA NEGATIVE (NEGATIVE)
[2020-02-01 21:41] LABS: TRICHOMONAS VAGINALIS DNA NEGATIVE (NEGATIVE)
== END 2020-02-01 23:59 | disposition home or self-care (01) ==
LOC: LAB.R 08:00
PROVIDERS: ATTEND Advanced Practice Midwife
DX: Z11.3 Encounter for screening for infections with a predominantly sexual mode of transmission (principal); L29.8 Other pruritus
CPT/HCPCS: 87491; 87591; 87661; 87801

== ENCOUNTER 2020-02-07 14:52 | Outpatient (CLI) | payer MEDICAID | END 2020-02-07 14:53 | disposition home or self-care (01) | LOC: SC 14:52 | PROVIDERS: ATTEND Internal Medicine Pulmonary Disease | DX: R53.83 Other fatigue (principal) ==

== ENCOUNTER 2020-03-07 08:00 | Outpatient (CLI) | payer MEDICAID ==
[2020-03-07 21:47] LABS: CANDIDA GROUP DNA POSITIVE (NEGATIVE); CANDIDA KRUSEI DNA NEGATIVE (NEGATIVE); TRICHOMONAS VAGINALIS DNA NEGATIVE (NEGATIVE)
== END 2020-03-07 23:59 | disposition home or self-care (01) ==
LOC: LAB.R 08:00
PROVIDERS: ATTEND Nurse Practitioner Obstetrics & Gynecology
DX: N76.0 Acute vaginitis (principal)
CPT/HCPCS: 87661; 87801

== ENCOUNTER 2020-07-03 13:53 | Outpatient (CLI) | payer MEDICARE, MEDICAID ==
[2020-07-03 14:52] VITALS: BP 131/76
--- NOTE | 2020-07-03 14:52 | SLEEP CARE CONSULTATION ---
Information from patient questionnaire entered by Gage Mckenzie. I have reviewed and concur with the information entered by Gage Mckenzie. This document represents the service I personally performed and the decisions made by me, Naomi Olivo ARNP. History of Present Illness Service Date and Time: 07/03/2020 1353 Reason for Visit: New patient Chief Complaint: reports: Insomnia, Unrefreshed sleep, Snoring (occasionally wakes up snorting), Excessive daytime sleepiness, Frequent awakenings at night. denies: Observed pauses in breathing Date of Onset: 3-4 years Usual bedtime: 1030 Time it takes to fall asleep: 2 hr Snores at night: Yes (has woke up snorting but no complaints from bedpartner about loud snoring) Observed to quit breathing while asleep: No Sleeps alone due to snoring: No Number of times waking at night: 3-4 Reasons for waking at night: reports: Snoring, Bathroom. denies: Choking, Gasping for air Toss, Turn, or Twitch while sleeping: Yes Recalls having dreams: Yes Usually gets out of bed at: 9-1030 AM Feels refreshed in the morning: Yes (sometimes) Morning headache: Yes (sometimes; 3-4 times a week. 1-2 hours, some last all day/becomes migraines) Sleepy or fatigued during the day: Yes Ever fallen asleep while driving: No (no drowsy driving) Takes day naps: Yes (sometimes; 3 times a week for about 1-2 hours) Dreams during day naps: No Prior sleep studies: No Additional HPI information: I had the pleasure of seeing LIONEL WILSON today regarding the possibility of her having a sleep disorder. Her current complaints are insomnia and frequent night awakenings. She is having trouble sleeping in the last few years. She has gained a lot of weight, about 80 pounds since 2014. Patient does have PCOS, is on Metformin and looking at possible bariatric surgery. She was sent here to evaluate her for possible sleep disorder. Her mother snores, but she denies any sleep apnea in the family. - Parasomnia Symptoms Ever been unable to move upon waking from sleep: No Walks in sleep: No Talks in sleep: No Ever acted out dreams in sleep: No Ever felt weak in the knees when startled or emotional: No Bothered by creepy, crawly, restless sensations in legs: No Problems with memory or concentration: Yes (sometimes; both, hard to concentrate when in school) Subjective Initial [place] Sleepiness Scale score: 10 (in 2020) Past Medical History Past Medical History: reports: Insulin resistance (PCOS), Anxiety, Depression, Mood disorder (mild PTSD). 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 Patient is Single and lives in [place]. Have you smoked in the past 12 months: No Alcohol use: No Caffeine use: Yes Caffeine amount and frequency: 1 a day, 1 cup in morning Family History Family history of sleep disordered breathing: Yes (mom) Family Hx Sleep Apnea: Mother: Snoring Allergies and Home Medications Drug allergies reviewed: Yes (NKDA) Home medication list reviewed: Yes Allergy and home medication list: Oral contraception vitamin without iron Metaformin Review of Systems Weight gain over past 5 years: 80 Cardiovascular: denies: high blood pressure, irregular heart rate or pulse Gastrointestinal: reports: nausea. denies: heartburn Urinary: reports: incontinence Neurological: reports: headaches. denies: head trauma Psychiatric: reports: anxiety, depression Ear/Nose/Throat: reports: nasal congestion, tonsillectomy, wisdom teeth removed. denies: dry mouth/throat, injury to nose Endocrine: reports: sluggishness (tired), increased urination, unexplained weakness (achy) Musculoskeletal: reports: neck pain, back pain Immunologic: reports: allergies to food or environment (pollen; pet dander) Physical Exam Blood Pressure: 131/76 Cuff size: wrist Heart Rate: 90 O2 Saturation: 98 Height: 5 ft 7 in Weight: 271 lb Body Mass Index: 42.4 BMI Classification: Morbidly Obese Neck circumference: 17.25 (inches) Nostrils: patent to airflow Turbinates: swollen (mostly on left side) Septum: midline Mouth and throat: narrow oropharynx Hard palate: arched Uvula visualization: 50% Mallampati Class II Tongue: enlarged in size with teeth light on lateral edges Tonsils: absent bilaterally Chin and jaw: Micrognathia Neck: normal w/o lymphadenopathy or thyromegaly Heart: regular rate and rhythm Lungs: clear bilaterally Impression and Plan 1. Suspected Obstructive Sleep Apnea-Hypopnea Syndrome, as suggested by a history of snoring, morning headache, frequent awakening during the night, unrefreshed sleep, cognitive impairment, and excessive daytime sleepiness. I reviewed with that patient that a narrow oropharynx and obesity are common predisposing factors for obstructive sleep apnea-hypopnea syndrome. I recommend proceeding to polysomnography to confirm the diagnosis and to assess severity. If the patient has significant sleep disordered breathing, a manual CPAP titration study will also be performed to find the optimal treatment pressure. I informed the patient of what the sleep studies involve and after some discussion, obtained agreement to proceed. The pathophysiology of obstructive sleep apnea-hypopnea syndrome was discussed with the patient and health risks of cardiovascular and cerebrovascular disease if not treated. AAS brochure for obstructive sleep apnea-hypopnea syndrome given and reviewed. Risks of drowsy driving discussed in detail and patient advised to avoid long distance driving and to sheeting puller at the first sign of drowsiness. Patient agreed to plan. * Schedule polysomnography +- manual CPAP titration study and return in 1-2 weeks after the study to discuss result and initiate therapy. * Avoid long distance driving or driving when feeling sleepy. * Avoid alcohol, sedative and muscle relaxant around bedtime. * Attempt to lose weight. * Review instructions provided by trained office staff on how to prepare for the sleep study. * Return for follow-up after sleep study completed. Counseling Topics: Weight loss health impact Visit Type: In Office Time Spent with Patient (minutes): 30 Provider Statement: I spent 100% of the Face to Face Visit with the patient with greater than 50% spent counseling the patient and coordination of care.
== END 2020-07-03 13:54 | disposition home or self-care (01) ==
LOC: SC 13:53
PROVIDERS: ATTEND Nurse Practitioner Family
DX: G47.10 Hypersomnia, unspecified (principal); R41.89 Other symptoms and signs involving cognitive functions and awareness; G47.8 Other sleep disorders; R51.9 Headache, unspecified; R06.83 Snoring; E66.01 Morbid (severe) obesity due to excess calories; Z68.41 Body mass index [BMI] 40.0-44.9, adult
CPT/HCPCS: 99203; G0463; 99212

== ENCOUNTER 2020-09-02 20:39 | Outpatient (CLI) | payer MEDICARE, MEDICAID | END 2020-09-02 20:40 | disposition home or self-care (01) | LOC: SC 20:39 | PROVIDERS: ATTEND Nurse Practitioner Family | DX: G47.61 Periodic limb movement disorder (principal); E66.9 Obesity, unspecified; Z68.41 Body mass index [BMI] 40.0-44.9, adult | CPT/HCPCS: 95810 ==

== ENCOUNTER 2020-09-04 16:34 | Outpatient (CLI) | payer MEDICARE, MEDICAID ==
--- NOTE | 2020-09-04 17:16 | SLEEP CARE CONSULTATION ---
Information from patient questionnaire entered by Gage Mckenzie. I have reviewed and concur with the information entered by Gage Mckenzie. This document represents the service I personally performed and the decisions made by , Naomi Olivo ARNP. History of Present Illness Service Date and Time: 09/04/2020 1634 Initial [place] Sleepiness Scale score: 10 (in 2020) Current Supply Sleepiness Scale score: 8 Additional HPI information: LIONEL WILSON returns for follow up and results of the recently performed polysomnography. The patient was informed of the following findings: no significant sleep disordered breathing with an average AHI of 3.7 and roberto oxygen saturation of 88%. I explained the pathophysiology behind obstructive sleep apnea. Patient does not have sleep apnea and was advised how weight gain could increase the risk of developing sleep apnea in the future. I strongly encouraged the patient to lose weight. Patient does not have significant sleep disordered breathing but has slightly elevated AHI in supine position so advised positional therapy. Methods to achieve positional management therapy were discussed; such as, positioning with pillows, wearing a T-shirt with tennis balls sewn into the back, Rematee shirt, Zzomba belt and Slumberbump belt. Patient has light snoring. Snoring can be reduced by weight loss. Weight loss is best achieved with diet consult. Patient instructed to contact PCP for referral. Snoring can also be treated with an oral appliance from a dentist. Advised to check insurance coverage. In addition, an ENT evaluation can be do to see if other treatment is indicated. Patient counseled not drink alcohol less than 4 hours before bedtime as it can increase snoring and apnea. Patient was cautioned about risks of drowsy driving until sleepiness symptoms resolve. Sleep Study - Results Type of Sleep Study: Polysomnography Prior sleep studies: No Polysomnography/Home Sleep Study results: IMPRESSION: The quality of the study is good. The patient had slightly reduced sleep efficiency due to a prolonged awakening in the middle of the night. The sleep architecture was normal. Respiratory monitoring showed no significant sleep disordered breathing (AHI = 3.7) associated with frequent arousals, oxyhemoglobin desaturation and mild hypoxia (roberto oxygen saturation of 88% and only < 1% to the total sleep time was spent with oxygen saturation below 90%). The few respiratory events occurred mainly during REM sleep (supine AHI = 5.0; non-supine = 3.55). Snore was light in intensity. There was moderate periodic leg movement of sleep not associated with sleep fragmentation. Cardiac rhythm was normal sinus rhythm without significant arrhythmia. No abnormal behavior (parasomnia) observed during the night. Allergies and Home Medications Home medication list reviewed: Yes (no new medications, stopped Meformin) Review of Systems Review of systems same as previous: Yes (no changes) Physical Exam Heart Rate: 108 (nervous today) O2 Saturation: 98 Height: 5 ft 7 in Weight: 274 lb Body Mass Index: 42.9 BMI Classification: Morbidly Obese Impression and Plan 1. Snoring but no significant sleep disordered breathing. Patient advised that often weight loss will reduce snoring as well as apnea risk. An oral appliance can also be used for snoring. This would require a dental consultation. Patient cautioned not to use other online appliances as can cause bite issues. A list of accredited dentists in [facility] and one local dentist who makes oral appliances is available in this office. Patient is advised to check if insurance will cover. An ENT consult can also be helpful to determine if any other treatment is an option. Patient advised to sleep on her back since her supine AHI is elevated. She states she sleeps mostly on her sides and only was on her back because she was told to try to sleep on her back for testing purposes. Patient is pursuing bariatric surgery to help her lose weight. 2. Periodic limb movement, moderate, that did not fragment patients sleep. Periodic limb movement of sleep (PLMS) is characterized by episodes of repetitive limb movements that occur during sleep and usually involve the lower limbs. The etiology is unknown but can be associated with restless leg syndrome (RLS), neuropathy, spinal cord diseases, kidney disease, rheumatological disorders, narcolepsy, obstructive sleep apnea, and REM sleep behavior disorder. Other factors that can increase PLMS and/or RLS are heredity and iron deficiency as reflected by a low serum ferritin level below 50 to 75mcg / L. Caffeine can also aggravate PLMS and should be avoided. Sleep hygiene methods can also improve sleep as well as lifestyle changes such as regular exercise. Patient was advised that no treatment is needed at this time. If symptoms increase, then further evaluation is indicated. * Follow up with PCP as needed for moderate PLMs * Attempt to lose weight * Avoid alcohol consumption near bedtime * The patient is cautioned about driving until sleepiness is completely resolved. * Return as needed. Counseling Topics: Weight loss health impact Visit Type: In Office Time Spent with Patient (minutes): 22 Provider Statement: I spent 100% of the Face to Face Visit with the patient with greater than 50% spent counseling the patient and coordination of care.
== END 2020-09-04 16:35 | disposition home or self-care (01) ==
LOC: SC 16:34
PROVIDERS: ATTEND Nurse Practitioner Family
DX: G47.61 Periodic limb movement disorder (principal); R06.83 Snoring; E66.01 Morbid (severe) obesity due to excess calories; Z68.41 Body mass index [BMI] 40.0-44.9, adult
CPT/HCPCS: 99212; G0463

== ENCOUNTER 2020-09-19 14:13 | Outpatient (CLI) | payer MEDICARE, MEDICAID ==
[2020-09-19 20:01] LABS: ESTIMATED AVERAGE GLUCOSE 111 mg/dL (70-100); HEMOGLOBIN A1c% 5.5 % (4.27-6.07)
[2020-09-20 07:57] LABS: HIV AG/AB 4TH GEN NON-REACTIVE (NON-REACTIVE)
[2020-09-20 11:53] LABS: HEPATITIS C ANTIBODY NON-REACTIVE (NON-REACTIVE)
[2020-09-20 11:55] LABS: HEPATITIS B SURFACE ANTIGEN NON-REACTIVE (NON-REACTIVE)
== END 2020-09-19 14:14 | disposition home or self-care (01) ==
LOC: LAB 14:13
PROVIDERS: ATTEND Obstetrics & Gynecology
DX: Z11.3 Encounter for screening for infections with a predominantly sexual mode of transmission (principal); Z68.44 Body mass index [BMI] 60.0-69.9, adult; Z83.2 Family history of diseases of the blood and blood-forming organs and certain disorders involving the immune mechanism
CPT/HCPCS: 36415; 82728; 83021; 83036; 84443; 85014; 85018; 85041; 86592; 86803; 87340; G0475; 81599; 86695; 86696; 87389; 87491; 87591; 87661